=== PATIENT | female | born 1970 ===

== ENCOUNTER 2017-03-29 12:00 | Observation (INO) | payer SELFPAY ==
--- NOTE | 2017-03-29 12:52 | ED PDOC ---
Syncope/Near Syncope/Dizziness Time Seen by Provider: 03/29/17 12:39 Chief Complaint (Nursing): Dizziness/Lightheaded Chief Complaint (Provider): Dizziness History Per: Patient History/Exam Limitations: no limitations Onset/Duration Of Symptoms: Days Current Symptoms Are (Timing): Still Present Activity At Onset Of Symptoms: Walking, Change In Head Position Fall Associated With With Symptoms: No Additional Complaint(s): 46 y/o F with PMhx of bradycardia presents c/o dizziness for the past 3 days. She states that her head feels heavy and hasnt been able to go to work because the lightheadedness. Denies spinning, vomiting, nausea, diarrhea, cough, fever. Admits congestion and mild frontal headache. Had numbness in the left arm Yesterday that went away. Denies chest pain, SOB or vision changes. - Symptoms Of CVA Recent Head Trauma: No Past Medical History Reviewed: Vital Signs Vital Signs: Last Vital Signs Temp 98.0 F 03/29/17 12:09 Pulse 59 L 03/29/17 12:09 Resp 16 03/29/17 12:09 BP 115/47 L 03/29/17 12:09 Pulse Ox 100 03/29/17 12:09 - Medical History PMH: Cardia Arrhythmia (bradycardia) - Surgical History Other surgeries: BTL - Family History Family History: States: Unknown Family Hx - Home Medications Home Medications: Ambulatory Orders Medication Instructions Recorded Multivitamin [Multi-Vitamin Daily] 1 tab PO DAILY 03/29/17 Pseudoephedrine [Sudafed Tab] 1 tab PO Q6H PRN 03/29/17 - Allergies Allergies/Adverse Reactions: Allergies Allergy/AdvReac Type Severity Reaction Status Date / Time Quinolones Allergy RASH Verified 03/29/17 12:08 Sulfa (Sulfonamide Allergy ANAPHYLAXIS Verified 03/29/17 12:08 Antibiotics) Review of Systems ROS Statement: Except As Marked, All Systems Reviewed And Found Negative Musculoskeletal: Positive for: Neck Pain (mild) Neurological: Positive for: Headache (mild frontal), Dizziness Physical Exam - Physical Exam Appears: Positive for: Non-toxic, No Acute Distress Skin: Positive for: Normal Color, Warm Eye Exam: Positive for: Normal appearance, EOMI, PERRL. Negative for: Nystagmus , Periorbital swelling, Conjunctival injection ENT: Positive for: Nasal Congestion, Pharyngeal Erythema. Negative for: Tonsillar Exudate, Tonsillar Swelling Neck: Positive for: Painless ROM, Supple Cardiovascular/Chest: Positive for: Regular Rate, Rhythm. Negative for: Gallop , Murmur Respiratory: Positive for: Normal Breath Sounds. Negative for: Crackles, Rales , Wheezing, Respiratory Distress Gastrointestinal/Abdominal: Positive for: Soft Back: Negative for: L CVA Tenderness, R CVA Tenderness Neurologic/Psych: Positive for: Alert, Oriented. Negative for: Motor/Sensory Deficits, Aphasia, Facial Droop - Laboratory Results Result Diagrams: 03/29/17 13:17 03/29/17 13:17 - ECG O2 Sat by Pulse Oximetry: 100 - Progress ED Course And Treament: Revaluated. Persistent dizziness. VS: Bradycardia Blood work and Head CT unremarkable EKG: Sinus bradycardia and RBBB To be admitted for Obs. Discussed with Dr Smith Case discussed with Dr Butler(hospitalist contract negotiator) Medical Decision Making Medical Decision Making: Lightheadedness Bradycardia Neurologic vs Cardiac vs metabolic CBC, CMP EKG, Head CT Disposition - Clinical Impression Clinical Impression: Lightheadedness - Disposition Disposition Time: 16:50 Condition: STABLE Forms: [employer] ([employer]) - Pt Status Changed To: Hospital Disposition Of: Observation
[2017-03-29 13:34] LABS: BILIRUBIN,TOTAL 0.6 mg/dl (0.2-1.3); CALCIUM 8.7 mg/dL (8.4-10.2); CARBON DIOXIDE 23 mmol/L (22-30); CHLORIDE 108 mmol/L (98-107); GFR AFRICAN-AMERICAN > 60; GLUCOSE,RANDOM 93 mg/dL (65-105); SODIUM 141 mmol/l (132-148); TOTAL PROTEIN 8.1 G/DL (6.3-8.2)
[2017-03-29 13:38] LABS: BASO # 0.1 K/uL (0.0-0.2); BASO % 0.9 % (0.0-2.0); EOS # 0.2 K/uL (0.0-0.7); EOS % 2.4 % (0.0-4.0); HEMATOCRIT 39.2 % (34.0-47.0); LYMPH # 1.8 K/uL (1.0-4.3); LYMPH % 19.7 % (20.0-40.0); MEAN CELL VOLUME 81.8 fl (81.0-99.0); MEAN CORPUSCULAR HEMOGLOBIN 26.4 pg (27.0-31.0); MEAN CORPUSCULAR HGB CONC 32.2 g/dL (33.0-37.0); MEAN PLATELET VOLUME 10.2 fl (7.2-11.7); MONO # 0.6 K/uL (0.0-0.8); MONO % 6.9 % (0.0-10.0); NEUT # 6.4 K/uL (1.8-7.0); NEUT % 70.1 % (50.0-75.0); RED CELL DISTRIBUTION WIDTH 17.2 % (11.5-14.5); WHITE BLOOD COUNT 9.1 K/uL (4.8-10.8)
[2017-03-29 13:53] LABS: ALKALINE PHOSPHATASE 72 U/L (38-126); ALT/SGPT 34 U/L (9-52); AST/SGOT 31 U/L (14-36); BLOOD UREA NITROGEN 15 mg/dl (7-17); POTASSIUM 5.2 MMOL/L (3.6-5.0)
--- NOTE | 2017-03-29 13:53 | CT ---
PROCEDURE: CT HEAD WITHOUT CONTRAST. HISTORY: headache COMPARISON: None available. TECHNIQUE: Axial computed tomography images were obtained through the head/brain without intravenous contrast. Radiation dose: Total exam DLP = 856.51 mGy-cm. This CT exam was performed using one or more of the following dose reduction techniques: Automated exposure control, adjustment of the mA and/or kV according to patient size, and/or use of iterative reconstruction technique. FINDINGS: HEMORRHAGE: No intracranial hemorrhage. BRAIN: Normal alexander-white matter differentiation and density are appreciated throughout the cerebrum and cerebellum with the brainstem appearing unremarkable as well. There is no mass effect. There is no suspicious extra-axial fluid collection and the midline brain anatomy appears diffusely unremarkable. VENTRICLES: Unremarkable. No hydrocephalus. CALVARIUM: Unremarkable. PARANASAL SINUSES: Instill note is made of minimal right maxillary sinusitis with remain appears sinuses incidentally clear. MASTOID AIR CELLS: Unremarkable as visualized. No inflammatory changes. OTHER FINDINGS: None. IMPRESSION: Unremarkable unenhanced CT of the Head. If symptoms persist or worsen consider follow-up CT or MRI including potentially with contrast.
[2017-03-29 17:59] VITALS: BP 141/70; PULSE 76; RESP 18; TEMP 97.8; O2SAT 99
--- NOTE | 2017-03-29 18:25 | CP.PCM.HP ---
History of Present Illness - History of Present Illness History of Present Illness: CC: lightheadedness HPI: 46 year old female no PMH presented to the ER with a 3 day history of vague lightheadedness which she describes as "fuzzy" and feeling "off balance." Patient states she has had symptoms consistent with sinusitis. Pt was placed on OBS for lightheadedness and RBBB on EKG. Spoke with patient's Tool Tender and RBBB has been documented since 2014, also no active chest pain or dyspnea. Patient does not wish to stay for observation overnight and signed AMA. ROS: PER HPI ALL OTHER SYSTEMS REVIEWED AND NEGATIVE PMSH: DENIES FH: DENIES SH: DENIES TOBACCO ETOH IVDU MEDS: NONE ALLERGIES ABOVE Vitals Reviewed GEN: WDWN, ALERT, COOPERATIVE HEENT: NCAT, PERRL, EOMI HEART: RRR, +S1S2, NO MRG LUNG: CTAB, NO WRR ABD: SOFT, NT, ND, NO HSM, NO MASSES EXT: NORMAL PEDAL PULSES, GOOD CAPILLARY REFILL NEURO: AAOX3, STRENGTH EQUAL BILATERAL UPPER AND LOWER EXTREMITIES SKIN: WARM, DRY PSYCH: NORMAL MOOD, NORMAL AFFECT Most Recent Lab Values WBC 9.1 K/uL (4.8-10.8) 03/29/17 13:17 RBC 4.80 Mil/uL (3.80-5.20) 03/29/17 13:17 Hgb 12.6 g/dL (12.0-16.0) 03/29/17 13:17 Hct 39.2 % (34.0-47.0) 03/29/17 13:17 MCV 81.8 fl (81.0-99.0) 03/29/17 13:17 MCH 26.4 pg (27.0-31.0) L 03/29/17 13:17 MCHC 32.2 g/dL (33.0-37.0) L 03/29/17 13:17 RDW 17.2 % (11.5-14.5) H 03/29/17 13:17 Plt Count 244 K/uL (130-400) 03/29/17 13:17 MPV 10.2 fl (7.2-11.7) 03/29/17 13:17 Neut % (Auto) 70.1 % (50.0-75.0) 03/29/17 13:17 Lymph % (Auto) 19.7 % (20.0-40.0) L 03/29/17 13:17 [place] % (Auto) 6.9 % (0.0-10.0) 03/29/17 13:17 Eos % (Auto) 2.4 % (0.0-4.0) 03/29/17 13:17 Baso % (Auto) 0.9 % (0.0-2.0) 03/29/17 13:17 Neut # 6.4 K/uL (1.8-7.0) 03/29/17 13:17 Lymph # 1.8 K/uL (1.0-4.3) 03/29/17 13:17 [place] # 0.6 K/uL (0.0-0.8) 03/29/17 13:17 Eos # 0.2 K/uL (0.0-0.7) 03/29/17 13:17 Baso # 0.1 K/uL (0.0-0.2) 03/29/17 13:17 Sodium 141 mmol/l (132-148) 03/29/17 13:17 Potassium 5.2 MMOL/L (3.6-5.0) H 03/29/17 13:17 Chloride 108 mmol/L (98-107) H 03/29/17 13:17 Carbon Dioxide 23 mmol/L (22-30) 03/29/17 13:17 Anion Gap 15 (10-20) 03/29/17 13:17 BUN 15 mg/dl (7-17) 03/29/17 13:17 Creatinine 0.6 mg/dl (0.7-1.2) L 03/29/17 13:17 Est GFR ( Amer) > 60 03/29/17 13:17 Est GFR (Non-Af Amer) > 60 03/29/17 13:17 Random Glucose 93 mg/dL (65-105) 03/29/17 13:17 Calcium 8.7 mg/dL (8.4-10.2) 03/29/17 13:17 Total Bilirubin 0.6 mg/dl (0.2-1.3) 03/29/17 13:17 AST 31 U/L (14-36) 03/29/17 13:17 ALT 34 U/L (9-52) 03/29/17 13:17 Alkaline Phosphatase 72 U/L (38-126) 03/29/17 13:17 Troponin I < 0.0120 ng/mL (0.00-0.120) 03/29/17 13:17 Total Protein 8.1 G/DL (6.3-8.2) 03/29/17 13:17 Albumin 4.1 g/dL (3.5-5.0) 03/29/17 13:17 Globulin 4.0 gm/dL (2.2-3.9) H 03/29/17 13:17 Albumin/Globulin Ratio 1.0 (1.0-2.1) 03/29/17 13:17 CT HEAD UNREMARKABLE 46 year old female no PMH presented to the ER with a 3 day history of vague lightheadedness which she describes as "fuzzy" and feeling "off balance." Patient states she has had symptoms consistent with sinusitis. Pt was placed on OBS for lightheadedness and RBBB on EKG. Spoke with patient's Tool Tender and RBBB has been documented since 2014, also no active chest pain or dyspnea. Patient does not wish to stay for observation overnight and signed AMA. Present on Admission - Present on Admission Any Indicators Present on Admission: No Past Patient History - Past Social History Smoking Status: Former Smoker - CARDIAC Hx Cardia Arrhythmia: Yes (bradycardia) - PSYCHIATRIC Hx Substance Use: No - SURGICAL HISTORY Hx Surgeries: Yes Hx Tubal Ligation: Yes - ANESTHESIA Hx Anesthesia: Yes Hx Anesthesia Reactions: No Meds Allergies/Adverse Reactions: Allergies Allergy/AdvReac Type Severity Reaction Status Date / Time Quinolones Allergy RASH Verified 03/29/17 12:08 Sulfa (Sulfonamide Allergy ANAPHYLAXIS Verified 03/29/17 12:08 Antibiotics) Results - Vital Signs Recent Vital Signs: Last Vital Signs Temp 97.8 F 03/29/17 17:58 Pulse 76 03/29/17 17:58 Resp 18 03/29/17 17:58 BP 141/70 03/29/17 17:58 Pulse Ox 99 03/29/17 17:58 - Labs Result Diagrams: 03/29/17 13:17 03/29/17 13:17 Labs: Laboratory Results - last 24 hr 03/29/17 03/29/17 13:17 13:17 WBC 9.1 RBC 4.80 Hgb 12.6 Hct 39.2 MCV 81.8 MCH 26.4 L MCHC 32.2 L RDW 17.2 H Plt Count 244 MPV 10.2 Neut % (Auto) 70.1 Lymph % (Auto) 19.7 L [place] % (Auto) 6.9 Eos % (Auto) 2.4 Baso % (Auto) 0.9 Neut # 6.4 Lymph # 1.8 Willacy # 0.6 Eos # 0.2 Baso # 0.1 Sodium 141 Potassium 5.2 H Chloride 108 H Carbon Dioxide 23 Anion Gap 15 BUN 15 Creatinine 0.6 L Est GFR ( Amer) > 60 Est GFR (Non-Af Amer) > 60 Random Glucose 93 Calcium 8.7 Total Bilirubin 0.6 AST 31 ALT 34 Alkaline Phosphatase 72 Troponin I < 0.0120 Total Protein 8.1 Albumin 4.1 Globulin 4.0 H Albumin/Globulin Ratio 1.0
--- NOTE | 2017-03-30 10:01 | CP.PCM.DIS ---
Provider - Provider Date of Admission: 03/29/17 16:45 Attending physician: Nidhi Butler DO Time Spent in preparation of Discharge (in minutes): 30 Hospital Course - Lab Results Lab Results: Most Recent Lab Values WBC 9.1 K/uL (4.8-10.8) 03/29/17 13:17 RBC 4.80 Mil/uL (3.80-5.20) 03/29/17 13:17 Hgb 12.6 g/dL (12.0-16.0) 03/29/17 13:17 Hct 39.2 % (34.0-47.0) 03/29/17 13:17 MCV 81.8 fl (81.0-99.0) 03/29/17 13:17 MCH 26.4 pg (27.0-31.0) L 03/29/17 13:17 MCHC 32.2 g/dL (33.0-37.0) L 03/29/17 13:17 RDW 17.2 % (11.5-14.5) H 03/29/17 13:17 Plt Count 244 K/uL (130-400) 03/29/17 13:17 MPV 10.2 fl (7.2-11.7) 03/29/17 13:17 Neut % (Auto) 70.1 % (50.0-75.0) 03/29/17 13:17 Lymph % (Auto) 19.7 % (20.0-40.0) L 03/29/17 13:17 [place] % (Auto) 6.9 % (0.0-10.0) 03/29/17 13:17 Eos % (Auto) 2.4 % (0.0-4.0) 03/29/17 13:17 Baso % (Auto) 0.9 % (0.0-2.0) 03/29/17 13:17 Neut # 6.4 K/uL (1.8-7.0) 03/29/17 13:17 Lymph # 1.8 K/uL (1.0-4.3) 03/29/17 13:17 [place] # 0.6 K/uL (0.0-0.8) 03/29/17 13:17 Eos # 0.2 K/uL (0.0-0.7) 03/29/17 13:17 Baso # 0.1 K/uL (0.0-0.2) 03/29/17 13:17 Sodium 141 mmol/l (132-148) 03/29/17 13:17 Potassium 5.2 MMOL/L (3.6-5.0) H 03/29/17 13:17 Chloride 108 mmol/L (98-107) H 03/29/17 13:17 Carbon Dioxide 23 mmol/L (22-30) 03/29/17 13:17 Anion Gap 15 (10-20) 03/29/17 13:17 BUN 15 mg/dl (7-17) 03/29/17 13:17 Creatinine 0.6 mg/dl (0.7-1.2) L 03/29/17 13:17 Est GFR ( Amer) > 60 03/29/17 13:17 Est GFR (Non-Af Amer) > 60 03/29/17 13:17 Random Glucose 93 mg/dL (65-105) 03/29/17 13:17 Calcium 8.7 mg/dL (8.4-10.2) 03/29/17 13:17 Total Bilirubin 0.6 mg/dl (0.2-1.3) 03/29/17 13:17 AST 31 U/L (14-36) 03/29/17 13:17 ALT 34 U/L (9-52) 03/29/17 13:17 Alkaline Phosphatase 72 U/L (38-126) 03/29/17 13:17 Troponin I < 0.0120 ng/mL (0.00-0.120) 03/29/17 13:17 Total Protein 8.1 G/DL (6.3-8.2) 03/29/17 13:17 Albumin 4.1 g/dL (3.5-5.0) 03/29/17 13:17 Globulin 4.0 gm/dL (2.2-3.9) H 03/29/17 13:17 Albumin/Globulin Ratio 1.0 (1.0-2.1) 03/29/17 13:17 - Hospital Course Hospital Course: 46 year old female no PMH presented to the ER with a 3 day history of vague lightheadedness which she describes as "fuzzy" and feeling "off balance." Patient states she has had symptoms consistent with sinusitis. Pt was placed on OBS for lightheadedness and RBBB on EKG. Spoke with patient's Tire Fabricator and RBBB has been documented since 2015, also no active chest pain or dyspnea. Patient does not wish to stay for observation overnight and signed AMA from Emergency room. Risks of leaving AMA, and benefits of staying explained, including but not limited to permanent debilitation and possible and pt expressed understanding. Pt alert, orientated x3, stable gait. Discharge Exam - Head Exam Head Exam: ATRAUMATIC, NORMOCEPHALIC - Eye Exam Eye Exam: EOMI, Normal appearance, PERRL Pupil Exam: NORMAL ACCOMODATION - ENT Exam ENT Exam: Mucous Membranes Moist, Normal Oropharynx - Neck Exam Neck exam: Full Rom, Normal Inspection - Respiratory Exam Respiratory Exam: Clear to PA & Lateral, NORMAL BREATHING PATTERN - Cardiovascular Exam Cardiovascular Exam: RRR, +S1, +S2 - GI/Abdominal Exam GI & Abdominal Exam: Normal Bowel Sounds, Soft, Unremarkable - Extremities Exam Extremities exam: normal capillary refill, pedal pulses present - Back Exam Back exam: absent: CVA tenderness (L), CVA tenderness (R) - Neurological Exam Neurological exam: Alert, CN II-XII Intact, Normal Gait, Oriented x3, Reflexes Normal - Psychiatric Exam Psychiatric exam: Normal Affect, Normal Mood - Skin Skin Exam: Dry, Warm Discharge Plan - Follow Up Plan Condition: STABLE Disposition: AGAINST MEDICAL ADVICE
== END 2017-03-29 17:59 | disposition left against medical advice (07) ==
LOC: H.ER 12:00 → H.ERHOLD 16:45
PROVIDERS: ADMIT Student in an Organized Health Care Education/Training Program; ATTEND Student in an Organized Health Care Education/Training Program
DX: R42 Dizziness and giddiness (principal); I45.10 Unspecified right bundle-branch block; Z87.891 Personal history of nicotine dependence
CPT/HCPCS: 70450; 80053; 84484; 85025; 99283; G0378